=== PATIENT | female | born 1975 | race Two or more races ===

== ENCOUNTER → 2024-06-11 | Outpatient (CLI) | payer MEDICAID, SELFPAY ==
--- NOTE | 2024-06-11 09:30 | XR_ITS ---
Examination: Esophagram standard 13 spot fluoroscopic films of the esophagus Upright PA chest single view Upright soft tissue lateral neck single view Fluoroscopy Exam date and time: June 11, 2024 1008 hours INDICATIONS: Difficulty swallowing 1 year TECHNIQUE AND FINDINGS: Upright PA chest single view demonstrates normal heart size Mild scarring versus pneumonia left base Soft tissue lateral neck single view shows normal epiglottis no distention hypopharynx Patient swallowed thin barium with 13 spot films of the esophagus obtained Primary peristaltic esophageal waves noted Minimal gastroesophageal intermittent reflux No esophageal lesion or stricture or gastroesophageal junction Fluoroscopy 0.13 minutes IMPRESSION: Primary peristaltic esophageal waves noted Minimal intermittent gastroesophageal reflux Scarring versus mild pneumonia left base, clinical correlation advised
== END | disposition home or self-care (01) ==
PROVIDERS: PCP Family Medicine; Referring Provider Family Medicine; Visit Provider Family Medicine
DX: K21.9 Gastro-esophageal reflux disease without esophagitis (principal); R91.8 Other nonspecific abnormal finding of lung field
CPT/HCPCS: 74220